=== PATIENT | female | born 1995 | race Two or more races ===

== ENCOUNTER 2019-07-22 11:50 | Inpatient (IN) | payer OTHER ==
[~2019-07-22] VITALS: Ht 182.9 cm; Wt 45.4 kg
== END 2019-07-23 15:28 | disposition home or self-care (01) | DRG 584 ==
LOC: ER 11:50 → O/R 12:42 → SURG 18:06
PROVIDERS: ADMIT Specialist
PROC: 0B9P30Z Drainage of Left Pleura with Drainage Device, Percutaneous Approach (ICD-10-PCS; 2019-07-22)
PROC: 0HRV0JZ Replacement of Bilateral Breast with Synthetic Substitute, Open Approach (ICD-10-PCS; principal; 2019-07-22 12:00)
DX: N64.82 Hypoplasia of breast (principal); J93.83 Other pneumothorax